=== PATIENT | male | born 1940 | race Caucasian/White ===

== ENCOUNTER 2025-02-18 08:03 | Emergency (ER) | payer MEDICARE, SELFPAY ==
[2025-02-18 08:07] VITALS: BP 153/85; PULSE 106; RESP 18; TEMP 36.4; O2SAT 97
--- OUTSIDE RECORDS SUMMARY | 2025-02-18 08:16 | XMS_ITS | Referral Summary ---
Author Organization [facility] [place] [address] Address [address] [place] [address] Care Team Providers Care Assembler Corncob Pipes Name Role Phone Wesley Trivedi DO Primary Care Provider +1- [phone] Allergies Active Allergy Reactions Criticality Noted Date Comments Penicillin V Unknown 01/19/2018 Medications aspirin 81 mg tablet Take 81 mg by mouth daily. Active finasteride (PROSCAR) 5 mg tablet Take 5 mg by mouth daily. Active PARoxetine (PAXIL) suspension 10 mg/5 mL Take 20 mg by mouth every morning. Active atorvastatin (LIPITOR) 20 mg tablet Take 2 tablets by mouth once daily 60 tablet 06/24/2021 Active Active Problems Problem Noted Date Diagnosed Date Presence of stent in coronary artery 01/19/2018 Coronary artery disease invo lving [place] coronary artery of [place] heart without angina pectoris 01/19/2018 COPD (chronic obstructive pulmonary disease) Former smoker 01/19/2018 History of non-ST elevation myocardial infarctio n (NSTEMI) 01/19/2018 Social History Tobacco Use Types Packs/Day Years Used Date Smoking Tobacco: Former Smokeless Tobacco: Former Alcohol Use Standard Drinks/Week Comments Yes 0 (1 standard drink = 0.6 oz pur e alcohol) Personal Safety Answer Date Recorded Getting School Help Needed Not on file 02/11 Sex and Gender Information Value Date Recorded Sex Assigned at Not on file Legal Sex Male 3:10 AM SUPERVISOR SAMPLE Gender Identity Not on file Sexual Orientation Not on file Last Filed Vital Signs Vital Sign Reading Time Taken Comments Blood Pressure 164/92 12/20/2019 3:25 PM SUPERVISOR SAMPLE Pulse 78 12/20/2019 3:25 PM SUPERVISOR SAMPLE Temperature - - Respiratory Rate - - Oxygen Saturation 93% 12/20/2019 3:25 PM SUPERVISOR SAMPLE Inhaled Oxygen Concentration - - Weight 95.3 kg (210 lb) 12/20/2019 3:25 PM SUPERVISOR SAMPLE Height 185.4 cm (6' 1 ) 12/20/2019 3:25 PM SUPERVISOR SAMPLE Body Mass Index 27.71 12/20/2019 3:25 PM SUPERVISOR SAMPLE Plan of Treatment Not on file Insurance MEDICARE Care Teams Assembler Corncob Pipes Relationship Specialty Start Date End Date Wesely Trivedi DO PCP - General 12/26/13
--- OUTSIDE RECORDS SUMMARY | 2025-02-18 08:16 | XMS_ITS | Clinical Summary ---
Author Organization [facility] [place] [address] Address [address] [place] [address] Care Team Providers Care Inspector Plug Seam Name Role Phone Wesley Trivedi DO Primary Care Provider +1- [phone] Allergies Active Allergy Reactions Criticality Noted Date [...] artery 01/19/2018 Coronary artery disease invo lving [place] coronary artery of [place] heart without angina pectoris 01/19/2018 COPD (chronic [...] on file Legal Sex Male 3:10 AM LINSEED OIL ORDER FILLER Gender Identity Not on file Sexual Orientation Not on file Obstetrics History Last Filed Vital Signs Vital Sign Reading Time Taken Comments Blood Pressure 164/92 12/20/2019 3:25 PM LINSEED OIL ORDER FILLER Pulse 78 12/20/2019 3:25 PM LINSEED OIL ORDER FILLER Temperature - - Respiratory Rate - - Oxygen Saturation 93% 12/20/2019 3:25 PM LINSEED OIL ORDER FILLER Inhaled Oxygen Concentration - - Weight 95.3 kg (210 lb) 12/20/2019 3:25 PM LINSEED OIL ORDER FILLER Height 185.4 cm (6' 1 ) 12/20/2019 3:25 PM LINSEED OIL ORDER FILLER Body Mass Index 27.71 12/20/2019 3:25 PM LINSEED OIL ORDER FILLER Plan of Treatment Not on file Insurance MEDICARE Care Teams Inspector Plug Seam Relationship Specialty Start Date End Date Wesley Trivedi DO PCP - General 12/26/13
[2025-02-18 08:37] LABS: Basophils Percent Auto 0.7 % (0.2-1.2); Eosinophils Absolute Auto 0.1 K/mm3 (0-0.3); Eosinophils Percent Auto 2.4 % (0-4.4); Hematocrit 45.1 % (42.0-52.0); Hemoglobin 14.8 g/dL (14.0-18.0); Immature Granulocyte Absolute 0.01 K/mm3 (0.00-0.031); Immature Granulocyte Percent A 0.2 % (0-0.5); Lymphocytes Percent Auto 30.3 % (18.3-44.2); Mean Corpuscular HGB Conc 32.8 g/dl (32-36); Mean Corpuscular Hemoglobin 29.9 pg (26-34); Mean Corpuscular Volume 91.1 fl (80-100); Mean Platelet Volume 9.8 fl (7.4-10.4); Monocytes Absolute Auto 0.4 K/mm3 (0.1-0.6); Monocytes Percent Auto 7.1 % (2.6-8.5); Neutrophils Absolute Auto 3.5 K/mm3 (1.3-6.7); Neutrophils Percent Auto 59.3 % (45.5-73.1); Platelet Count Result 199 k/mm3 (150-375); Red Blood Count 4.95 M/mm3 (4.6-6.20)
[2025-02-18 09:00] LABS: Alanine Aminotransferase 21 U/L (6-50); Albumin Level 4.6 g/dL (3.5-5.1); Alkaline Phosphatase 81 U/L (38-126); Anion Gap 12 mmol/L (4-12); Aspartate Amino Transferase 27 U/L (17-59); Bilirubin,Total 0.9 mg/dL (0.2-1.3); Blood Urea Nitrogen 20 mg/dL (9-20); Calcium 9.2 mg/dL (8.4-10.2); Carbon Dioxide 25 mmol/L (22-30); Chloride 102 mmol/L (98-107); Estimated CRCL calculation 47 ml/min; Estimated Glomerular Filt Rate 56; Glucose 153 mg/dL (65-110); Lipase 109 U/L (23-300); Potassium 4.1 mmol/L (3.4-5.0); Sodium 139 mmol/L (137-145)
[2025-02-18 09:52] LABS: Add Urine Microscopic? YES; Appearance Urine Cloudy (Clear); Bacteria Urine 4+ /hpf; Bilirubin Urine Negative (Negative); Blood Urine Negative (Negative); Color Urine Yellow (Yellow); Glucose Urine UA Negative (Negative); Ketones Urine Negative (Negative); Leukocyte Esterase Ur 2+ LEU/UL (Negative); Nitrate Urine Positive (Negative); Protein Urine Negative (Negative); RBC Urine 0-2 /hpf (0-2); Specific Grav Ur 1.015 (1.001-1.035); Squamous Epithelial Cell Urine None Seen /hpf (Few); Urobilinogen Urine 0.2 mg/dL (<2.0); WBC Urine >100 /hpf (0-3); pH Urine 5.5 (5.0-9.0)
--- NOTE | 2025-02-18 10:10 | ED.ABDPAIN ---
HPI - Abdominal Pain General Chief Complaint: Abdominal Pain Stated Complaint: colon blockage Time Seen by Provider: 02/18/25 09:41 History of Present Illness HPI narrative: Pt presents with feeling of constipation for a few days not moving bowels. Pt taking laxatives without relief. Pt denies other symptoms. Related Data Home Medications ?Medication ?Instructions ?Recorded ?Confirmed ?Last Taken ?Type finasteride 5 mg tablet 5 mg PO DAILY 12/07/22 06/19/24 Unknown History nitroglycerin 0.4 mg sublingual 0.4 mg sublingual Q5M PRN 12/07/22 06/19/24 Unknown History tablet loratadine 10 mg tablet (Claritin) 10 mg PO DAILY 12/16/22 06/19/24 Unknown History Allergies Allergy/AdvReac Type Severity Reaction Status Date / Time guaifenesin Allergy Mild Rash Verified 02/18/25 08:13 Penicillins Allergy Unknown Rash Verified 02/18/25 08:13 Review of Systems Review of Systems: All systems reviewed & are unremarkable except as noted in HPI and below Gastrointestinal: Gastrointestinal: Reports abdominal pain and Reports constipation [facility] Past Medical History Medical History (Updated 02/18/25 @ 10:20 by Andrew Ochoa III, DO) Tinnitus H/O nephrolithotomy with removal of calculi Essential (primary) hypertension COPD (chronic obstructive pulmonary disease) with emphysema Generalized anxiety disorder Benign prostatic hyperplasia with lower urinary tract symptoms Gastro-esophageal reflux disease without esophagitis Pure hypercholesterolemia, unspecified Atherosclerotic heart disease of [place] coronary artery without angina pectoris Elevated blood pressure reading Abnormal PSA Surgical History Surgical History History of eye surgery Family History Family History Father Family history of emphysema Mother Family history of congestive heart failure Social History Social History (Updated 06/19/24 @ 13:05 by Adwoa Jorge MA) Smoking status: Former smoker Alcohol intake: never Substance use: never Substance use type: does not use Do You Feel Safe in your Home?: Yes Lack of Transportation: No Lack of Food: Never True Current Housing: I Have Housing Concerned About Future Housing: No Difficulty Paying Gas/Electric Bills: No Difficulty Paying for Meds: No Currently Unemployed: YES Education: High School Diploma/GED Living arrangements: with family Occupation/Education: retired Gender identity (if verbalized by the patient): Male Sexual Orientation (if Verbalized by the Patient): Straight or Heterosexual Spiritual care concerns: No Exam Const: General: cooperative Nutritional Appearance: average body habitus Orientation/consciousness: patient oriented x3 Limitations: no limitations HENMT: Mouth: Yes Normal oral and palatal mucosa present Neck: Neck: normal visual inspection, full ROM, no lymphadenopathy and no meningeal signs Chest: Chest palpation & inspection: normal inspection of the chest Resp: Effort & Inspection: normal respiratory effort Cardio: Rate: regular rate Rhythm: regular rhythm GI: Inspection: normal to inspection GI Palp: No abdominal tenderness, Yes Soft to palpation and No Tenderness to palpation present (GI) Auscultation: normal bowel sounds Back/Spine/Pelvis: Back: no CVA tenderness Skin: General skin exam: normal color, no rashes or lesions noted and turgor normal Neuro: General: patient oriented x3 and moves all extremities Extrem: General: normal to inspection, full ROM and no clubbing, cyanosis or edema Psych: Appearance: grossly normal Mental Status: mental status grossly normal Speech and movement: Normal speech and movement present Course Vital Signs Vital signs: Vital Signs Temperature 97.5 F L 02/18/25 08:07 Pulse Rate 106 H 02/18/25 08:07 Respiratory Rate 18 02/18/25 08:07 Blood Pressure 153/85 H 02/18/25 08:07 Pulse Oximetry 97 02/18/25 08:07 Oxygen Delivery Room Air 02/18/25 08:07 Temperature 97.5 F L 02/18/25 08:07 Pulse Rate 106 H 02/18/25 08:07 Respiratory Rate 18 02/18/25 08:07 Blood Pressure 153/85 H 02/18/25 08:07 Pulse Oximetry 97 02/18/25 08:07 Oxygen Delivery Room Air 02/18/25 08:07 MDM - Abdominal Pain MDM Narrative Medical decision making narrative: Pt presents with constipation but had BM here and pain is resolved. Pt has no urinary symptoms byut has uti on UA so will treat for 3 days. constipation now resolved. Lab Data 02/18/25 08:32 02/18/25 08:32 Labs: Lab Results 02/18/25 02/18/25 Range/Units 08:32 09:40 WBC 6.0 (4.5-10.0) K/mm3 RBC 4.95 (4.6-6.20) M/mm3 Hgb 14.8 (14.0-18.0) g/dL Hct 45.1 (42.0-52.0) % MCV 91.1 (80-100) fl MCH 29.9 (26-34) pg MCHC 32.8 (32-36) g/dl RDW 13.0 (11.5-14.5) % Plt Count 199 (150-375) k/mm3 MPV 9.8 (7.4-10.4) fl Immature Gran % (Auto) 0.2 (0-0.5) % Neut % (Auto) 59.3 (45.5-73.1) % Lymph % (Auto) 30.3 (18.3-44.2) % [place] % (Auto) 7.1 (2.6-8.5) % Eos % (Auto) 2.4 (0-4.4) % Baso % (Auto) 0.7 (0.2-1.2) % Lymph # (Auto) 1.80 (0.9-3.2) K/mm3 [place] # (Auto) 0.4 (0.1-0.6) K/mm3 Eos # (Auto) 0.1 (0-0.3) K/mm3 Baso # (Auto) 0.0 (0.0-0.1) K/mm3 Abs Immat Gran (auto) 0.01 (0.00-0.031) K/mm3 Absolute Neuts (auto) 3.5 (1.3-6.7) K/mm3 Absolute Nucleated RBC 0.000 (0.0-0.012) K/mm3 Nucleated RBC % 0.0 (0.0-0.2) % Sodium 139 (137-145) mmol/L Potassium 4.1 (3.4-5.0) mmol/L Chloride 102 (98-107) mmol/L Carbon Dioxide 25 (22-30) mmol/L Anion Gap 12 (4-12) mmol/L BUN 20 (9-20) mg/dL Creatinine 1.23 (0.7-1.3) mg/dL Estim Creat Clear Calc 47 ml/min Estimated GFR 56 L (59 - ) Glucose 153 H (65-110) mg/dL Calcium 9.2 (8.4-10.2) mg/dL Total Bilirubin 0.9 (0.2-1.3) mg/dL AST 27 (17-59) U/L ALT 21 (6-50) U/L Alkaline Phosphatase 81 (38-126) U/L Total Protein 8.0 (6.3-8.2) g/dL Albumin 4.6 (3.5-5.1) g/dL Lipase 109 (23-300) U/L Urine Color Yellow (Yellow) Urine Appearance Cloudy H (Clear) Urine pH 5.5 (5.0-9.0) Ur Specific [place] 1.015 (1.001-1.035) Urine Protein Negative (Negative) mg/dL Urine Glucose (UA) Negative (Negative) mg/dL Urine Ketones Negative (Negative) mg/dL Ur Blood (Man) Negative (Negative) Urine Nitrate Positive H (Negative) Urine Bilirubin Negative (Negative) Urine Urobilinogen 0.2 (<2.0) mg/dL Leukocyte Esterase Rfl 2+ H (Negative) SARAH/UL Urine RBC 0-2 (0-2) /hpf Urine WBC >100 H (0-3) /hpf Ur Squamous Epith Cells None seen (Few) /hpf Urine Bacteria 4+ H /hpf Urine Casts 3-5 Discharge Plan Discharge Clinical Impression: Constipation, Acute UTI Patient Disposition: Home, Self-Care Condition: Improved Instructions: Antibiotic Form, Constipation (DC), Urinary Tract Infection in Men (DC) Patient Language: Amharic Prescriptions: New cefdinir 300 mg capsule 300 mg PO Q12H Qty: 6 0RF No Action loratadine [Claritin] 10 mg tablet 10 mg PO DAILY finasteride 5 mg tablet 5 mg PO DAILY nitroglycerin 0.4 mg tablet, sublingual 0.4 mg sublingual Q5M PRN Rx Instructions: do not exceed 3 doses per episode lisinopril 10 mg tablet 10 mg PO DAILY Qty: 90 1RF rosuvastatin 5 mg tablet 5 mg PO DAILY Qty: 90 1RF Follow-up/Referrals: Ramon Smith MD [Primary Care Provider] -
--- OUTSIDE RECORDS SUMMARY | 2025-02-18 11:57 | XMS_ITS | Clinical Summary ---
Author Organization [facility] [place] [address] Address [address] [place] [address] Care Team Providers Care Shipping Track Supervisor Name Role Phone Wesley Trivedi DO Primary Care Provider +1- [phone] Allergies Active Allergy Reactions Criticality Noted Date [...] artery 01/19/2018 Coronary artery disease invo lving [place] coronary artery of [place] heart without angina pectoris 01/19/2018 COPD (chronic [...] on file Legal Sex Male 3:10 AM CORE BAKER Gender Identity Not on file Sexual Orientation Not on file Obstetrics History Last Filed Vital Signs Vital Sign Reading Time Taken Comments Blood Pressure 164/92 12/20/2019 3:25 PM CORE BAKER Pulse 78 12/20/2019 3:25 PM CORE BAKER Temperature - - Respiratory Rate - - Oxygen Saturation 93% 12/20/2019 3:25 PM CORE BAKER Inhaled Oxygen Concentration - - Weight 95.3 kg (210 lb) 12/20/2019 3:25 PM CORE BAKER Height 185.4 cm (6' 1 ) 12/20/2019 3:25 PM CORE BAKER Body Mass Index 27.71 12/20/2019 3:25 PM CORE BAKER Plan of Treatment Not on file Insurance MEDICARE Care Teams Shipping Track Supervisor Relationship Specialty Start Date End Date Wesley Trivedi DO PCP - General 12/26/13
--- OUTSIDE RECORDS SUMMARY | 2025-02-18 11:57 | XMS_ITS | Referral Summary ---
Author Organization [facility] [place] [address] Address [address] [place] [address] Care Team Providers Care Silo Painter Name Role Phone Wesley Trivedi DO Primary Care Provider +1- [phone] Allergies Active Allergy Reactions Criticality Noted Date [...] artery 01/19/2018 Coronary artery disease invo lving [place] coronary artery of [place] heart without angina pectoris 01/19/2018 COPD (chronic [...] on file Legal Sex Male 3:10 AM COFFEE WEIGHER Gender Identity Not on file Sexual Orientation Not on file Last Filed Vital Signs Vital Sign Reading Time Taken Comments Blood Pressure 164/92 12/20/2019 3:25 PM COFFEE WEIGHER Pulse 78 12/20/2019 3:25 PM COFFEE WEIGHER Temperature - - Respiratory Rate - - Oxygen Saturation 93% 12/20/2019 3:25 PM COFFEE WEIGHER Inhaled Oxygen Concentration - - Weight 95.3 kg (210 lb) 12/20/2019 3:25 PM COFFEE WEIGHER Height 185.4 cm (6' 1 ) 12/20/2019 3:25 PM COFFEE WEIGHER Body Mass Index 27.71 12/20/2019 3:25 PM COFFEE WEIGHER Plan of Treatment Not on file Insurance MEDICARE Care Teams Silo Painter Relationship Specialty Start Date End Date Wesley Trivedi DO PCP - General 12/26/13
== END 2025-02-18 10:50 | disposition home or self-care (01) ==
PROVIDERS: Emergency Provider Emergency Medicine; PCP Family Medicine
DX: K59.00 Constipation, unspecified (principal); N39.0 Urinary tract infection, site not specified; I10 Essential (primary) hypertension; J44.9 Chronic obstructive pulmonary disease, unspecified; F41.9 Anxiety disorder, unspecified; E78.00 Pure hypercholesterolemia, unspecified
CPT/HCPCS: 36415; 80053; 81001; 83690; 85025; 87086; 87186; 99283